=== PATIENT | female | born 1950 | race African-American/Black ===

== ENCOUNTER 2025-04-30 15:32 | Emergency (ER) | payer OTHER ==
[2025-04-30 15:42] VITALS: BP 158/84; PULSE 92; RESP 18; TEMP 98.1; BMI 25.7
[2025-04-30] MEDS ORDERED: NAPROXEN 500 MG TABLET ONE (16:30)
[2025-04-30] MEDS: NAPROXEN 500 MG TABLET PO ONE (16:33)
== END 2025-04-30 17:15 | disposition home or self-care (01) ==
LOC: JERFT 15:32
DX: M19.071 Primary osteoarthritis, right ankle and foot (principal); M79.671 Pain in right foot
CPT/HCPCS: 73630-TC-RT-FY; 99283-25